=== PATIENT | female | born 1995 | race Caucasian/White ===

== ENCOUNTER 2023-01-16 05:01 | Emergency (ER) | payer BC ==
[2023-01-16 05:10] VITALS: BP 115/72; RESP 18; TEMP 98.1; BMI 25.1
[2023-01-16 07:07] LABS: BASO % 0.3 % (0-2.0); EOS % 1.6 % (0-4.5); HEMATOCRIT 40.1 % (32.4-45.2); HEMOGLOBIN 13.9 GM/dL (10.7-15.3); MCHC 34.7 g/dl (32.0-36.0); MEAN CELL VOLUME 80.6 fl (80-96); MONO % 5.1 % (3.8-10.2); PLATELET COUNT 223 10^3/uL (134-434); RBC 4.97 M/mm3 (3.60-5.2); RDW 13.1 % (11.6-15.6); WHITE BLOOD COUNT 6.5 K/mm3 (4.0-10.0)
[2023-01-16 07:24] LABS: POTASSIUM 3.9 mmol/L (3.5-5.1)
[2023-01-16 07:26] LABS: CALCIUM 8.6 mg/dL (8.5-10.1)
[2023-01-16 07:27] LABS: ALBUMIN 3.7 g/dl (3.4-5.0); BLOOD UREA NITROGEN 14.3 mg/dL (7-18)
[2023-01-16 07:30] LABS: CREATININE 0.6 mg/dL (0.55-1.3)
[2023-01-16 07:31] LABS: TOT PROT 6.9 g/dl (6.4-8.2)
[2023-01-16 07:32] LABS: BILIRUBIN,TOTAL 0.3 mg/dL (0.2-1)
[2023-01-16 08:04] VITALS: PULSE 87
== END 2023-01-16 08:03 | disposition home or self-care (01) ==
LOC: JER 05:01
DX: R20.2 Paresthesia of skin (principal); R00.2 Palpitations; R47.9 Unspecified speech disturbances
CPT/HCPCS: 36415; 80053; 84484; 85025; 93005; 93010; 99284-25